=== PATIENT | female | born 1950 | race Caucasian/White ===

== ENCOUNTER 2024-08-11 09:55 | Emergency (ER) | payer OTHER ==
[~2024-08-11] VITALS: Ht 167.6 cm; Wt 78.0 kg
--- NOTE | 2024-08-11 10:37 | ED.PDOC ---
History of Present Illness HPI Comments HPI: 74-year-old female brought in by EMS presents to the ED with a c/o generalized weakness x 2 weeks with associated cough and diarrhea. 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 Patient mentions that she has been feeling this way for 2 weeks now. Patient is also mentioning that she has a non- productive cough and is having yellowish/brown diarrhea. Patient mentions taking Imodium for the diarrhea. EMS gave patient 1 atropine due to having bradycardia at 47 BPM. Patient was also given 1 500cc Bolus with improvement in BP. Patient has not taken any ibuprofen, Tylenol, or reports a fever. Patient is not on blood thinners. PMHx: DM, HTN, HLD, Sceleroderma, Diverticulitis PSHx: None reported Allergies: NKDA She will EMS Vital Signs: HR: 47 BP: 96/58 SpO2: 100% Temp: 98.2F RR: 14 BGLU: 172 On arrival patient's vital signs have already improves. Albert: HPI: Poor Historian. REVIEW OF SYSTEMS: CONSTITUTIONAL: Denies acute: fever, diaphoresis, chills, HEAD: Denies acute: headache, photophobia Eyes: Denies acute: Double vision, vision loss, eye pain, eye discharge. EARS: Denies acute: tinnitus, hearing loss, ear discharge, ear pain, THROAT: Denies acute: sore throat, swelling, difficulty swallowing , pain with swallowing, change in voice. NECK: Denies acute: neck pain, neck swelling, stiff neck. HEART: Denies acute : chest pain, palpitations, LUNGS: Denies acute: SOB, wheezing, , hemoptysis ABDOMEN: Denies acute: abdominal pain, Nausea, Vomiting, , , hematemesis, hematochezia SKIN: Denies acute: rash, redness, lesions, itchiness. EXTREMITIES: Denies acute: calf pain, numbness, tingling, weakness, denies pain in extremity. Denies acute: Low back pain. Neuro: Denies acute: focal neurological deficit, motor or sensory focal neurological deficit, tremors, seizure like activity, confusion, dizziness, change in mental status, loss of bowel or bladder function, cauda equina like symptoms. : Denies acute: dysuria, hematuria, flank pain, increase in urinary frequency. PSYCH: Denies acute: hallucination, suicidal ideation, homicidal ideation. FEMALE: Denies acute: abnormal vaginal bleeding, foul odor, unusual discharge. PHYSICAL EXAM: General: ----no----acute distress, awake and alert. Head: normocephalic, atraumatic. Neck: supple, trachea is midline, no swelling. Throat: Normal phonation. Eyes:, no erythema, no purulent discharge, no proptosis, no icterus. Heart: regular rate, regular rhythm, no significant murmur appreciated. Lungs: no apparent respiratory distress, Able to speak in full sentences. No wheezing, no rhonchi, no crackles. No stridors Clear to auscultation bilaterally. Abdomen: non tender to palpation, non distended, soft, no guarding, no rebound, + bowel sounds. Neuro: Awake, Alert, oriented to name, self, situation, follows commands GCS=15. Speech is normal. Skin: no petechia, no purpura, no cyanosis, non-pale, not jaundice. Lower extremities: --no - Pitting edema no deformity, no focal swelling, no calf TTP. Makes eye contact. moves all four extremities. Face: no apparent facial droop. ED COURSE: Chief Complaint: General Weakness Time Seen by MD: 10:22 Reviewed Notes: Nurses Notes, Allergies Allergies: Coded Allergies: NO KNOWN ALLERGIES (Unverified , 08/11/24) Home Meds Active Scripts Ciprofloxacin Hcl (Cipro) 500 Mg Tab, 500 MG PO BID for 7 Days, #14 TAB Prov:KHOI GORDON 08/11/24 Information Source: Patient, Emergency Med Personnel Mode of Arrival: EMS Past Medical History PAST MEDICAL HISTORY: DM, High Lipids, HTN Past Medical History (Other): DIVERTICULITIS, SCELRODERMA Surgical History: Denies all surgeries CYBER SECURITY ARCHITECT History: Denies all CYBER SECURITY ARCHITECT Hx Family History Family History: Reviewed,noncontributory to illness Social History Smoker: Non-Smoker Alcohol: Denies ETOH Use Drugs: Denies Drug Use Lives In: Home Was a procedure done? Was a procedure done?: No Differential Dx Considerations may include: Generalized weakness Includes but not limited to thyroid disease, encephalopathy, electrolyte abnormality, sepsis, infection, intracranial pathology, drug adverse effects, arrhythmia, kidney insufficiency, ACS, CVA, malignancy, anemia X-Ray, Labs, Meds, VS Vital Signs Date Time Temp Pulse Resp B/P (MAP) Pulse Ox O2 Delivery O2 Flow Rate FiO2 08/11/24 13:19 98.1 66 18 124/46 (72) 95 98.1 08/11/24 12:14 97.9 64 18 122/44 (70) 98 97.9 08/11/24 11:17 68 18 100 Room Air* 0 21 08/11/24 11:17 98.2 68 18 106/59 (75) 100 98.2 08/11/24 10:05 98.2 68 14 112/69 (83) 100 98.2 Lab Test 08/11/24 14:09 08/11/24 13:48 08/11/24 13:41 08/11/24 11:26 Range/Units Urine Color Light-yellow Yellow Urine Clarity Turbid H Clear Urine pH 5.0 5.0-9.0 Urine Specific [place] 1.037 H 1.001-1.035 Urine Protein Negative Negative Urine Ketones 1+ H Negative Urine Blood Negative Negative /uL Urine Nitrite Negative Negative Urine Bilirubin Negative Negative Urine Urobilinogen Normal Negative mg/dL Urine Leukocyte Esterase 3+ Negative /uL Urine RBC 16 0 - 4 /hpf Urine Microscopic WBC 60 H 0-5 /HPF Urine Squamous Epithelial Cells Few <5 /hpf Urine Bacteria Few H None Seen /hpf Urine Mucus Few None Seen Urine Glucose 4+ H Normal mg/dL Influenza Type A Antigen Negative Negative Influenza Type B Antigen Negative Negative SARS-CoV-2 Antigen (Rapid) Negative NEGATIVE Troponin I High Sensitivity 4 4 </=34 ng/L Test 08/11/24 10:33 08/11/24 10:13 Range/Units White Blood Count 4.0 L 4.4-10.8 10^3/uL Red Blood Count 4.83 4.0-5.20 10^6/uL Hemoglobin 14.1 12.2-16.2 g/dL Hematocrit 43.0 36.0-46.0 % Mean Corpuscular Volume 89.0 80.0-100.0 fL Mean Corpuscular Hemoglobin 29.3 28.0-32.0 pg Mean Corpuscular Hemoglobin Concent 32.9 32.0-36.0 g/dL Red Cell Distribution Width 13.4 11.8-14.3 % Platelet Count 198 140-450 10^3/uL Mean Platelet Volume 7.0 6.9-10.8 fL Neutrophils (%) (Auto) 59.4 37.0-80.0 % Lymphocytes (%) (Auto) 25.8 10.0-50.0 % Monocytes (%) (Auto) 12.5 H 0.0-12.0 % Eosinophils (%) (Auto) 1.8 0.0-7.0 % Basophils (%) (Auto) 0.5 0.0-2.0 % Neutrophils # (Auto) 2.4 1.6-8.6 10 ^3/uL Lymphocytes # (Auto) 1.0 0.4-5.4 10 ^3/uL Monocytes # (Auto) 0.5 0-1.3 10 ^3/uL Eosinophils # (Auto) 0.1 0-0.8 10 ^3/uL Basophils # (Auto) 0 0-0.2 10 ^3/uL Nucleated Red Blood Cells 0.1 % Sodium Level 139 136-145 mmol/L Potassium Level 3.7 3.5-5.1 mmol/L Chloride Level 105 98-107 mmol/L Carbon Dioxide Level 25 20-31 mmol/L Anion Gap 9 5-15 Blood Urea Nitrogen 17 9-23 mg/dL Creatinine 0.72 0.550-1.02 mg/dL Glomerular Filtration Rate Calc 89 >90 mL/min BUN/Creatinine Ratio 23.6 H 10.0-20.0 Serum Glucose 168 H 74-106 mg/dL Lactic Acid Level 1.1 0.4-2.0 mmol/L Calcium Level 10.2 8.7-10.4 mg/dL Magnesium Level 2.0 1.6-2.6 mg/dL Total Bilirubin 0.6 0.2-1.0 mg/dL Aspartate Amino Transferase (AST) 36 13-40 U/L Alanine Aminotransferase (ALT) 39 7-40 U/L Alkaline Phosphatase 40 L 46-116 U/L Troponin I High Sensitivity 3 L </=34 ng/L B-Type Natriuretic Peptide 41.88 0-100 pg/mL Total Protein 6.3 5.7-8.2 g/dL Albumin 4.2 3.2-4.8 g/dL POC Glucose 147 H 70-106 mg/dl Current Medications Medications (Trade) Dose Ordered Sig/Peter Route Start Time Stop Time Status Last Admin Sodium Chloride 500 ml @ 500 mls/hr Q1H ONCE IV 08/11/24 12:45 08/11/24 13:44 DC 08/11/24 12:59 Ceftriaxone Sodium 50 ml @ 100 mls/hr ONCE ONCE IV 08/11/24 15:30 08/11/24 15:59 DC 08/11/24 15:30 PATIENT: TINO MOJICAT: [id number]: [id number] : 1950 LOC: ER ROOM / BED: / AGE / SEX: 74 / F ADM STATUS: REG ER SERVICE 1016 ORDERING PHYSICIAN: KHOI GORDON DO PROCEDURE(s): CXRP - CHEST PORTABLE REASON: gen weak ORDER NUMBER(s): [id number], ACCESSION NUMBER(s): [id number] EXAM: XY CHEST PORTABLE HISTORY: gen weak COMPARISON: None TECHNIQUE: Portable AP view of the chest was performed. FINDINGS: There is mild bilateral lung base scarring versus atelectasis. There is mild central interstitial prominence. No pneumothorax orconsolidative infiltrates. The heart is not enlarged. There is thoracic degenerative disc disease. There is slight thoracic dextroscoliosis. IMPRESSION: Mild central interstitial prominence may be due to reactive airways disease or mild CHF. ATED BY: MELQUIADES CARLOS MD DICTATED DATE/TIME: 08/11/24 110 SIGNED BY: MELQUIADES CARLOS MD SIGNED DATE/TIME: 08/11/24 1101 Time of 1ST Reevaluation: 10:52 Reevaluation 1ST: Unchanged Time of 2ND Reevaluation: 18:20 (Patient states that her diarrhea is green. The patient states she is unable to provide us with a stool sample at this time.) Patient Education/Counseling: Diagnosis, Treatment Family Education/Counseling: No Family Present Comments Patient presented with the above HPI.--generalized weakness and one episode of bradycardia----workup was initiated. patient was found with the above mentioned diagnosis. the following medications were ordered: please refer to order lists of meds and tests obtained by myself Dr. Gordon. Patient ED course and VS have been stabilized. Patient has been reassessed in the ED and remained in a stable condition. Pertinent incidental findings were discussed with the patient and/or family. Patient/family voices understanding and is agreeable with plan. Patient has been observed in the ED adequate length of time to insure improvement/stability. Escalation of care considered: Consideration of escalation to observation or admission Patient episode of bradycardia in the field has already resolved by the time she arrived to the ED. patient has no history of CHF. Patient was DISCHARGED home in a stable condition. All the reports of any imaging studies that were ordered by myself were reviewed by myself. Departure 1 Departure Time of Disposition: 12:32 Impression: Primary Impression: Diarrhea Additional Impressions: UTI (urinary tract infection) Bradycardia Disposition: ADMITTED INPATIENT Admit to: Tele Condition: Guarded Additional Instructions: Additional instructions: You MUST follow-up with your primary care/family doctor in 1 to 2 days. If you are unable to see your primary care/family doctor, please return to our emergency room for re-assessment and re-evaluation in 1 to 2 days. Return to the emergency room here in our facility or to the nearest ER [facility] if your symptoms change or worsen. CONSULTATIONS: you MUST Follow-up for consultation as soon as possible with: -gastroenterology and cardiology and urology in 1-2 days. Please call for appointment. You MUST call the consultants office yourself to make an appointment. You may need to arrange that through your insurance and/or your primary/family doctor. If you are unable to see the sustainability consultant in 1 to 2 days, you must return to our emergency room (or any other ER of your choice) for re-assessment and re- evaluation. Adequate fluid hydration. e-Prescriptions Ciprofloxacin Hcl (Cipro) 500 Mg Tab 500 MG PO BID for 7 Days, #14 TAB Prov: KHOI GORDON DO 08/11/24 Discharged With: Self Critical Care Note Critical Care Time?: No Heart Score Heart Score: Heart Score Response (Comments) Value History Slightly Suspicious 0 EKG Normal 0 Age >65 2 Risk Factors 1 or 2 risk factors 1 Troponin Normal limit 0 Total 3 I personally scribed for KHOI GORDON DO ([email or web address]) on 08/11/24 at 10:37. Electronically submitted by Cyrus Coffey ([email or web address]). I personally scribed for KHOI GORDON DO ([email or web address]) on 08/11/24 at 12:50. Electronically submitted by Cyrus Coffey ([email or web address]). KHOI GORDON DO August 11, 2024 10:37
[2024-08-11 10:47] LABS: Basophils # (auto) 0 10 ^3/uL (0-0.2); Basophils % (auto) 0.5 % (0.0-2.0); Eosinophils # (auto) 0.1 10 ^3/uL (0-0.8); Eosinophils % (auto) 1.8 % (0.0-7.0); Hemoglobin 14.1 g/dL (12.2-16.2); Lymphocytes % (auto) 25.8 % (10.0-50.0); Mean Corpuscular Hemoglobin 29.3 pg (28.0-32.0); Mean Corpuscular Hgb Conc. 32.9 g/dL (32.0-36.0); Monocytes # (auto) 0.5 10 ^3/uL (0-1.3); Monocytes % (auto) 12.5 % (0.0-12.0); Neutrophils # (auto) 2.4 10 ^3/uL (1.6-8.6); Neutrophils % (auto) 59.4 % (37.0-80.0); Nucleated Red Blood Cells % 0.1 %; Platelet Count (auto) 198 10^3/uL (140-450); Red Blood Cells 4.83 10^6/uL (4.0-5.20); Red Cell Distribution Width 13.4 % (11.8-14.3)
--- NOTE | 2024-08-11 11:04 | DVH ---
EXAM: XY CHEST PORTABLE HISTORY: gen weak COMPARISON: None TECHNIQUE: Portable AP view of the chest was performed. FINDINGS: There is mild bilateral lung base scarring versus atelectasis. There is mild central interstitial pro minence. No pneumothorax orconsolidative infiltrates. The heart is not enlarged. There is thoracic de generative disc disease. There is slight thoracic dextroscoliosis. IMPRESSION: Mild central interstitial prominence may be due to reactive airways disease or mild CHF.
[2024-08-11 11:05] LABS: Alanine Aminotransferase 39 U/L (7-40); Albumin 4.2 g/dL (3.2-4.8); Anion Gap 9 (5-15); Aspartate Aminotransferase 36 U/L (13-40); BUN/Creatinine Ratio 23.6 (10.0-20.0); Blood Urea Nitrogen 17 mg/dL (9-23); Calcium 10.2 mg/dL (8.7-10.4); Carbon Dioxide 25 mmol/L (20-31); Chloride 105 mmol/L (98-107); Potassium 3.7 mmol/L (3.5-5.1); Sodium 139 mmol/L (136-145); Total Protein 6.3 g/dL (5.7-8.2)
[2024-08-11 11:06] LABS: Bilirubin, Total 0.6 mg/dL (0.2-1.0)
[2024-08-11 11:07] LABS: Alkaline Phosphatase 40 U/L (46-116); Glucose 168 mg/dL (74-106)
[2024-08-11 11:17] VITALS: PULSE 68; RESP 18; O2SAT 100
[2024-08-11] MEDS: SODIUM CHLORIDE 0.9% 500 ML IV ONE (12:59)
[2024-08-11 13:19] VITALS: BP 124/46; PULSE 66; RESP 18; TEMP 98.1; O2SAT 95
[2024-08-11 14:39] LABS: Urine Bacteria FEW /hpf (None Seen); Urine Blood Negative /uL (Negative); Urine Clarity Turbid (Clear); Urine Color Light-Yellow (Yellow); Urine Mucus FEW (None Seen); Urine Protein, UAD Negative (Negative); Urine Specific Gravity 1.037 (1.001-1.035); Urine Squamous Epithelial Cell FEW /hpf (<5); Urine Urobilinogen Normal (Negative); Urine WBC 60 /HPF (0-5)
[2024-08-11 14:51] LABS: COVID19 ANTIGEN SOFIA FIA NEGATIVE (NEGATIVE); Rapid Influenza A Negative (Negative); Rapid Influenza B Negative (Negative)
[2024-08-11] MEDS: cefTRIAXone 1GM/50ML D5W 50 ML IV ONE (15:30)
[2024-08-11] MEDS ORDERED: CIPR-173 PO (18:22)
--- NOTE | 2024-08-11 19:46 | ECG ---
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
== END 2024-08-11 18:45 | disposition home or self-care (01) ==
LOC: EDBD 09:55 → ER 09:55
DX: N39.0 Urinary tract infection, site not specified (principal); R00.1 Bradycardia, unspecified; R19.7 Diarrhea, unspecified; E11.9 Type 2 diabetes mellitus without complications; E78.5 Hyperlipidemia, unspecified; I10 Essential (primary) hypertension; Z79.899 Other long term (current) drug therapy; Z20.822 Contact with and (suspected) exposure to COVID-19
CPT/HCPCS: 36415; 71045; 80053; 81001; 82947; 83605; 83735; 83880; 84484; 85025; 87426; 87804; 93005; 96365; 99285; J0696; 82962